=== PATIENT | female | born 1945 | race Caucasian/White ===

== ENCOUNTER 2016-10-07 17:09 | Inpatient (IN) | payer OTHER ==
[~2016-10-07] VITALS: Ht 165.1 cm; Wt 84.8 kg
[~2016-10-07 17:09] MED LIST: CALC0.258 PO; EPOE1VIA13 SUBCUT; ERGO500043 PO; FERR-57 PO; FOLI-43 PO; FURO40TA5 PO; HYDR-1115 PO; INSU100V; INSU100V26 SUBCUT; INSU100V9 SUBCUT; LEVO112T5 PO; LIP80 PO; NIFE90TA48 PO; PANT40TA4 PO; SODI325T PO; TAMO20TA4 PO; TOPXL100 PO
[2016-10-07 17:12] VITALS: BP 156/87; PULSE 79; RESP 16; TEMP 97.1; O2SAT 98
[2016-10-07] MEDS ORDERED: INSULIN PUMP SQ (18:23)
[2016-10-07 18:37] LABS: ANION GAP 6 (5-15); CALCIUM 9.2 mg/dL (8.4-11.0); CHLORIDE 105 mmol/L (98-107); CREATININE 3.26 mg/dL (0.55-1.30); GLUCOSE 105 mg/dL (70-99); POTASSIUM 4.9 mmol/L (3.5-5.1); SODIUM SERUM 141 mmol/L (136-145); UREA NITROGEN, BLOOD 53 mg/dL (8-21)
[2016-10-07 18:42] LABS: ALANINE AMINOTRANSFERASE 36 U/L (12-78); ALBUMIN 3.9 g/dL (3.4-4.8); ASPARTATE AMINOTRANSFERASE 28 U/L (10-37); TOTAL BILIRUBIN 0.2 mg/dL (0.0-1.0); TOTAL PROTEIN, SERUM 7.3 g/dL (6.4-8.3)
[2016-10-07 18:51] LABS: PROTHROMBIN TIME 10.4 SECS (9.5-12.5)
[2016-10-07 18:52] LABS: BASOPHILS % (AUTO) 0.6 % (0.0-2.0); EOSINOPHILS # (AUTO) 0.1 K/uL (0.0-0.4); EOSINOPHILS % (AUTO) 1.4 % (0.0-4.0); HEMATOCRIT 42.2 % (36-48); HEMOGLOBIN 13.5 g/dL (12.0-16.0); LYMPHOCYTES # (AUTO) 1.6 K/uL (1.0-5.5); MEAN CORPUSCULAR HEMOGLOBIN 27 pg (27-31); MEAN CORPUSCULAR HGB CONC 32 % (32-36); MEAN CORPUSCULAR VOLUME 83 fL (79.0-98.0); MONOCYTES # (AUTO) 1.2 K/uL (0.0-1.0); MONOCYTES % (AUTO) 14.1 % (1.7-9.3); NEUTROPHILS # (AUTO) 5.3 K/uL (1.8-7.7); NEUTROPHILS % (AUTO) 64.9 % (40.0-70.0); PLATELET COUNT (AUTO) 141 K/uL (130-430); RED BLOOD CELL COUNT(AUTO) 5.07 MIL/uL (4.2-6.2); RED CELL DISTRIBUTION WIDTH 16.4 % (9.0-15.0); WHITE BLOOD COUNT (AUTO) 8.2 K/uL (4.8-10.8)
[2016-10-07 19:14] VITALS: BP 180/87; PULSE 72; RESP 18; TEMP 96.7; O2SAT 95
[2016-10-07 19:30] VITALS: BP 153/67; PULSE 73; RESP 15; TEMP 98.6
[2016-10-07] MEDS ORDERED: MORPHINE 2 MG/ML INJ. SYRINGE IVP PRN (20:30)
[2016-10-07] MEDS ORDERED: MAGNESIUM SULFATE 50 ML IV PRN (20:30)
[2016-10-07] MEDS ORDERED: DOCUSATE SODIUM 100 MG CAPSULE PO PRN (20:30)
[2016-10-07] MEDS ORDERED: LORazepam 2 MG/ML VIAL IVP PRN (20:30)
[2016-10-07] MEDS ORDERED: ZOLPIDEM TARTRATE 5 MG TABLET PO PRN (20:30)
[2016-10-07] MEDS ORDERED: ONDANSETRON HCL 4 MG/2 ML VIAL IVP PRN (20:30)
[2016-10-07] MEDS ORDERED: POTASSIUM CHLORIDE 10 MEQ TAB.PRT.SR PO PRN (20:30)
[2016-10-07] MEDS ORDERED: HEPARIN SODIUM,PORCINE 3000 UNITS/0.6 ML BOLUS IVP PRN (20:30)
[2016-10-07] MEDS ORDERED: HEPARIN SODIUM,PORCINE 2000 UNITS/0.4 ML BOLUS IVP PRN (20:30)
[2016-10-07] MEDS ORDERED: ATORVASTATIN 20 MG TABLET PO SCH (21:00)
[2016-10-07] MEDS: hydrALAZINE HCL 25 MG TABLET PO SCH (21:00)
[2016-10-07] MEDS: INSULIN REGULAR, HUMAN 100 UNITS/ML, 10 ML VIAL (novoLIN R) SUBCUT PRN (22:23)
[2016-10-07] MEDS ORDERED: HEPARIN IVP ONE (22:30)
[2016-10-08 00:27] VITALS: BP 129/72; PULSE 72; RESP 17; TEMP 98.2; O2SAT 98
[2016-10-08] MEDS: HEPARIN 25,000 UNITS in 250 ML PREMIX IV PRN (02:04)
[2016-10-08] MEDS: INSULIN REGULAR, HUMAN 100 UNITS/ML, 10 ML VIAL (novoLIN R) SUBCUT PRN ×3 (02:07→12:45)
[2016-10-08] MEDS: ACETAMINOPHEN 325 MG TABLET PO PRN (02:38)
[2016-10-08 04:53] VITALS: BP 137/63; PULSE 68; RESP 17; TEMP 98.6; O2SAT 98
[2016-10-08] MEDS: LEVOTHYROXINE SODIUM 0.112 MG TABLET PO SCH (06:56)
[2016-10-08 07:42] LABS: BASOPHILS % (AUTO) 0.4 % (0.0-2.0); EOSINOPHILS % (AUTO) 0.2 % (0.0-4.0); HEMATOCRIT 35.4 % (36-48); HEMOGLOBIN 11.4 g/dL (12.0-16.0); LYMPHOCYTES # (AUTO) 1.3 K/uL (1.0-5.5); LYMPHOCYTES % (AUTO) 15.7 % (20.5-51.5); MEAN CORPUSCULAR HEMOGLOBIN 26 pg (27-31); MEAN CORPUSCULAR HGB CONC 32 % (32-36); MEAN CORPUSCULAR VOLUME 82 fL (79.0-98.0); MONOCYTES # (AUTO) 0.6 K/uL (0.0-1.0); MONOCYTES % (AUTO) 7.5 % (1.7-9.3); NEUTROPHILS # (AUTO) 6.3 K/uL (1.8-7.7); NEUTROPHILS % (AUTO) 76.2 % (40.0-70.0); PLATELET COUNT (AUTO) 139 K/uL (130-430); RED BLOOD CELL COUNT(AUTO) 4.33 MIL/uL (4.2-6.2); RED CELL DISTRIBUTION WIDTH 16.2 % (9.0-15.0); WHITE BLOOD COUNT (AUTO) 8.2 K/uL (4.8-10.8)
[2016-10-08 08:16] VITALS: BP 158/60; PULSE 70; RESP 17; TEMP 97.3; O2SAT 94
[2016-10-08 08:21] LABS: ANION GAP 10 (5-15); CALCIUM 8.8 mg/dL (8.4-11.0); CHLORIDE 101 mmol/L (98-107); CREATININE 3.44 mg/dL (0.55-1.30); GLUCOSE 398 mg/dL (70-99); POTASSIUM 4.8 mmol/L (3.5-5.1); SODIUM SERUM 134 mmol/L (136-145); UREA NITROGEN, BLOOD 59 mg/dL (8-21)
[2016-10-08] MEDS: FOLIC ACID 1 MG TABLET PO SCH (08:34)
[2016-10-08] MEDS: PANTOPRAZOLE SODIUM 40 MG TAB PO SCH (08:34)
[2016-10-08] MEDS: FUROSEMIDE 40 MG TABLET PO SCH (08:35)
[2016-10-08] MEDS: NIFEDIPINE 90 MG TABLET.SA (PROCARDIA XL 90 MG) PO SCH (08:36)
[2016-10-08] MEDS: hydrALAZINE HCL 25 MG TABLET PO SCH ×3 (08:37→21:43)
[2016-10-08] MEDS: METOPROLOL SUCCINATE 50 MG TAB.SR.24H (TOPROL XL) PO SCH (08:38)
[2016-10-08] MEDS ORDERED: cloNIDine HCL 0.1 MG TABLET PO PRN (11:30)
[2016-10-08 12:00] VITALS: BP 166/74; PULSE 68; RESP 16; TEMP 99.5; O2SAT 94
[2016-10-08 16:00] VITALS: BP 149/56; PULSE 65; RESP 18; TEMP 97.3; O2SAT 93
[2016-10-08] MEDS ORDERED: *HEPARIN PER PHARMACY XX PRN (18:45)
[2016-10-08 19:50] VITALS: BP 142/61; PULSE 68; RESP 20; TEMP 99.6; O2SAT 93
[2016-10-08] MEDS ORDERED: COMMUNICATION ORDER XX ONE (21:00)
[2016-10-08] MEDS: ATORVASTATIN 20 MG TABLET PO SCH (21:39)
[2016-10-09] VITALS (7 sets, daily range): BP systolic 109–161; BP diastolic 55–82; PULSE 59–101; RESP 16–20; TEMP 97.2–98.5; O2SAT 95–96
[2016-10-09] MEDS: HEPARIN 25,000 UNITS in 250 ML PREMIX IV PRN ×2 (01:48→02:52)
[2016-10-09 02:26] LABS: BASOPHILS # (AUTO) 0.1 K/uL (0.0-0.2); BASOPHILS % (AUTO) 0.9 % (0.0-2.0); EOSINOPHILS # (AUTO) 0.1 K/uL (0.0-0.4); EOSINOPHILS % (AUTO) 1.2 % (0.0-4.0); HEMATOCRIT 38.1 % (36-48); HEMOGLOBIN 12.4 g/dL (12.0-16.0); LYMPHOCYTES # (AUTO) 1.8 K/uL (1.0-5.5); LYMPHOCYTES % (AUTO) 31.5 % (20.5-51.5); MEAN CORPUSCULAR HEMOGLOBIN 26 pg (27-31); MEAN CORPUSCULAR HGB CONC 33 % (32-36); MEAN CORPUSCULAR VOLUME 81 fL (79.0-98.0); MONOCYTES # (AUTO) 0.9 K/uL (0.0-1.0); MONOCYTES % (AUTO) 16.2 % (1.7-9.3); NEUTROPHILS # (AUTO) 2.7 K/uL (1.8-7.7); NEUTROPHILS % (AUTO) 50.2 % (40.0-70.0); PLATELET COUNT (AUTO) 158 K/uL (130-430); RED BLOOD CELL COUNT(AUTO) 4.69 MIL/uL (4.2-6.2); RED CELL DISTRIBUTION WIDTH 16.3 % (9.0-15.0); WHITE BLOOD COUNT (AUTO) 5.6 K/uL (4.8-10.8)
[2016-10-09 02:34] LABS: ALANINE AMINOTRANSFERASE 25 U/L (12-78); ALBUMIN 3.4 g/dL (3.4-4.8); ANION GAP 8 (5-15); ASPARTATE AMINOTRANSFERASE 21 U/L (10-37); CHLORIDE 102 mmol/L (98-107); CREATININE 3.31 mg/dL (0.55-1.30); GLUCOSE 95 mg/dL (70-99); PHOSPHORUS 3.4 mg/dL (2.7-4.5); POTASSIUM 4.2 mmol/L (3.5-5.1); SODIUM SERUM 136 mmol/L (136-145); TOTAL BILIRUBIN 0.3 mg/dL (0.0-1.0); TOTAL PROTEIN, SERUM 6.9 g/dL (6.4-8.3); UREA NITROGEN, BLOOD 64 mg/dL (8-21)
[2016-10-09] MEDS: hydrALAZINE HCL 25 MG TABLET PO SCH ×3 (06:00→21:42)
[2016-10-09] MEDS: LEVOTHYROXINE SODIUM 0.112 MG TABLET PO SCH (06:06)
[2016-10-09] MEDS: FUROSEMIDE 40 MG TABLET PO SCH (08:34)
[2016-10-09] MEDS: PANTOPRAZOLE SODIUM 40 MG TAB PO SCH (08:34)
[2016-10-09] MEDS: FOLIC ACID 1 MG TABLET PO SCH (08:34)
[2016-10-09] MEDS: METOPROLOL SUCCINATE 50 MG TAB.SR.24H (TOPROL XL) PO SCH (08:34)
[2016-10-09] MEDS: NIFEDIPINE 90 MG TABLET.SA (PROCARDIA XL 90 MG) PO SCH (08:34)
[2016-10-09] MEDS ORDERED: COMMUNICATION ORDER XX ONE (09:45)
[2016-10-09] MEDS ORDERED: INSULIN PUMP SUBCUT SCH (10:15)
[2016-10-09] MEDS: PRAMOXINE HCL/CALAMINE 180 ML LOTION TP SCH ×3 (10:44→21:42)
[2016-10-09] MEDS: ACYCLOVIR 400 MG TABLET PO SCH ×4 (10:44→21:54)
[2016-10-09] MEDS: ACETAMINOPHEN 325 MG TABLET PO PRN (15:38)
[2016-10-09] MEDS: ATORVASTATIN 20 MG TABLET PO SCH (21:42)
[2016-10-09] MEDS: TAMOXIFEN 20 MG PO SCH (21:44)
[2016-10-10 04:00] VITALS: BP 138/74; PULSE 83; RESP 16; TEMP 97.1; O2SAT 96
[2016-10-10] MEDS: hydrALAZINE HCL 25 MG TABLET PO SCH ×3 (06:00→21:08)
[2016-10-10] MEDS: ACYCLOVIR 400 MG TABLET PO SCH ×5 (06:00→21:08)
[2016-10-10] MEDS: LEVOTHYROXINE SODIUM 0.112 MG TABLET PO SCH (06:19)
[2016-10-10 07:35] LABS: BASOPHILS % (AUTO) 0.5 % (0.0-2.0); EOSINOPHILS # (AUTO) 0.1 K/uL (0.0-0.4); EOSINOPHILS % (AUTO) 1.9 % (0.0-4.0); HEMATOCRIT 37.7 % (36-48); LYMPHOCYTES # (AUTO) 1.6 K/uL (1.0-5.5); LYMPHOCYTES % (AUTO) 27.5 % (20.5-51.5); MEAN CORPUSCULAR HEMOGLOBIN 26 pg (27-31); MEAN CORPUSCULAR HGB CONC 32 % (32-36); MEAN CORPUSCULAR VOLUME 82 fL (79.0-98.0); MONOCYTES # (AUTO) 0.7 K/uL (0.0-1.0); MONOCYTES % (AUTO) 12.9 % (1.7-9.3); NEUTROPHILS # (AUTO) 3.4 K/uL (1.8-7.7); NEUTROPHILS % (AUTO) 57.2 % (40.0-70.0); PLATELET COUNT (AUTO) 154 K/uL (130-430); RED BLOOD CELL COUNT(AUTO) 4.59 MIL/uL (4.2-6.2); RED CELL DISTRIBUTION WIDTH 16.4 % (9.0-15.0); WHITE BLOOD COUNT (AUTO) 5.8 K/uL (4.8-10.8)
[2016-10-10 07:52] VITALS: BP 120/50; PULSE 59; RESP 18; TEMP 98.7; O2SAT 96
[2016-10-10 08:03] LABS: ANION GAP 11 (5-15); CALCIUM 8.3 mg/dL (8.4-11.0); CHLORIDE 103 mmol/L (98-107); CREATININE 3.98 mg/dL (0.55-1.30); GLUCOSE 195 mg/dL (70-99); POTASSIUM 4.2 mmol/L (3.5-5.1); SODIUM SERUM 138 mmol/L (136-145); UREA NITROGEN, BLOOD 66 mg/dL (8-21)
[2016-10-10] MEDS: FUROSEMIDE 40 MG TABLET PO SCH (09:00)
[2016-10-10] MEDS: PANTOPRAZOLE SODIUM 40 MG TAB PO SCH (09:00)
[2016-10-10] MEDS: METOPROLOL SUCCINATE 50 MG TAB.SR.24H (TOPROL XL) PO SCH (09:00)
[2016-10-10] MEDS: PRAMOXINE HCL/CALAMINE 180 ML LOTION TP SCH ×3 (09:00→21:00)
[2016-10-10] MEDS: FOLIC ACID 1 MG TABLET PO SCH (09:00)
[2016-10-10] MEDS: NIFEDIPINE 90 MG TABLET.SA (PROCARDIA XL 90 MG) PO SCH (09:00)
[2016-10-10] MEDS ORDERED: HYDROcodone/ACETAMIN 5-325 MG TAB (NORCO/ VICODIN) PO PRN ×2 (09:15)
[2016-10-10] MEDS ORDERED: ONDANSETRON HCL 4 MG/2 ML VIAL IVP ONE (09:15)
[2016-10-10] MEDS ORDERED: POLYMYXIN 500,000/BACIT.10,000 UNITS in NS IRR 1 L IR ONE (11:59)
[2016-10-10 12:02] VITALS: BP 160/68; PULSE 64; RESP 18; TEMP 97.1; O2SAT 95
[2016-10-10] MEDS ORDERED: NACL 0.9% 1,000 ML IV SCH (12:22)
[2016-10-10] MEDS ORDERED: ONDANSETRON HCL 4 MG/2 ML VIAL IVP PRN (12:30)
[2016-10-10] MEDS ORDERED: HYDROmorphone 1 MG INJ. 1 MG/ML AMPUL ONE (13:30)
[2016-10-10] MEDS ORDERED: NS 50 ML BAG IV ONE (14:00)
[2016-10-10] MEDS ORDERED: fentaNYL CITRATE/PF 100 MCG/2 ML AMP ONE (14:00)
[2016-10-10] MEDS ORDERED: NS 100 ML BAG IV ONE (14:00)
[2016-10-10] MEDS ORDERED: METOPROLOL TARTRATE 5 MG/5 ML VIAL ONE (14:00)
[2016-10-10] MEDS ORDERED: NS IRRIG SOLN 1000 ML IR ONE (14:00)
[2016-10-10] MEDS ORDERED: HEPARIN SODIUM,PORCINE 5000 UNITS/ML VIAL ONE (14:00)
[2016-10-10] MEDS ORDERED: LIDOCAINE/EPI 1% 1:100000 20 ML VIAL INJ ONE (14:00)
[2016-10-10] MEDS ORDERED: MIDAZOLAM HCL 5 MG/5 ML VIAL ONE (14:00)
[2016-10-10] MEDS ORDERED: CEFAZOLIN 2 GM IVPB PREMIX 50 ML IV ONE (14:00)
[2016-10-10] MEDS ORDERED: NS 1000 ML BAG IV ONE (14:00)
[2016-10-10] MEDS ORDERED: PROPOFOL 200MG/ 20ML VIAL (DIPRIVAN) IV ONE (14:00)
[2016-10-10 14:10] VITALS: BP 140/58; PULSE 67; RESP 16; TEMP 97.2; O2SAT 95
[2016-10-10] MEDS ORDERED: HEPARIN IV FLUSH 300 UNITS/3ML SYR INJ ONE (15:00)
[2016-10-10] MEDS ORDERED: HEPARIN SODIUM, PORCINE 10,000 UNITS/ 10 ML VIAL MC ONE (16:00)
[2016-10-10] MEDS: INSULIN ASPART 100 UNITS/ML, 10 ML VIAL (NovoLOG) SUBCUT PRN ×2 (17:49→17:54)
[2016-10-10 20:29] VITALS: BP 134/49; PULSE 78; RESP 18; TEMP 97; O2SAT 98
[2016-10-10 20:30] VITALS: BP 134/49; PULSE 78; RESP 18; TEMP 97; O2SAT 98
[2016-10-10] MEDS: ATORVASTATIN 20 MG TABLET PO SCH (21:00)
[2016-10-10] MEDS: TAMOXIFEN 20 MG PO SCH (21:02)
[2016-10-11 00:48] VITALS: BP 129/56; PULSE 69; RESP 18; TEMP 97.3; O2SAT 97
[2016-10-11 04:00] VITALS: BP 135/57; PULSE 69; RESP 18; TEMP 99.3; O2SAT 93
[2016-10-11] MEDS: ACYCLOVIR 400 MG TABLET PO SCH ×3 (05:57→14:00)
[2016-10-11] MEDS: LEVOTHYROXINE SODIUM 0.112 MG TABLET PO SCH (05:58)
[2016-10-11] MEDS: hydrALAZINE HCL 25 MG TABLET PO SCH ×2 (05:58→14:00)
[2016-10-11 08:01] LABS: BASOPHILS % (AUTO) 0.4 % (0.0-2.0); EOSINOPHILS % (AUTO) 0.3 % (0.0-4.0); HEMATOCRIT 34.9 % (36-48); HEMOGLOBIN 11.6 g/dL (12.0-16.0); LYMPHOCYTES # (AUTO) 1.7 K/uL (1.0-5.5); LYMPHOCYTES % (AUTO) 20.8 % (20.5-51.5); MEAN CORPUSCULAR HEMOGLOBIN 27 pg (27-31); MEAN CORPUSCULAR HGB CONC 33 % (32-36); MEAN CORPUSCULAR VOLUME 80 fL (79.0-98.0); MONOCYTES # (AUTO) 1.1 K/uL (0.0-1.0); MONOCYTES % (AUTO) 12.8 % (1.7-9.3); NEUTROPHILS # (AUTO) 5.4 K/uL (1.8-7.7); NEUTROPHILS % (AUTO) 65.7 % (40.0-70.0); PLATELET COUNT (AUTO) 124 K/uL (130-430); RED BLOOD CELL COUNT(AUTO) 4.38 MIL/uL (4.2-6.2)
[2016-10-11 08:05] LABS: WHITE BLOOD COUNT (AUTO) 8.2 K/uL (4.8-10.8)
[2016-10-11 08:19] LABS: ANION GAP 14 (5-15); CALCIUM 8.2 mg/dL (8.4-11.0); CHLORIDE 98 mmol/L (98-107); CREATININE 2.95 mg/dL (0.55-1.30); PHOSPHORUS 4.1 mg/dL (2.7-4.5); POTASSIUM 4.3 mmol/L (3.5-5.1); SODIUM SERUM 136 mmol/L (136-145); UREA NITROGEN, BLOOD 42 mg/dL (8-21)
[2016-10-11 08:32] LABS: GLUCOSE 404 mg/dL (70-99)
[2016-10-11 08:35] VITALS: BP 143/85; PULSE 83; RESP 16; TEMP 98.5; O2SAT 96
[2016-10-11] MEDS ORDERED: [UNRECOGNIZED DRUG - CODE] TP (08:41)
[2016-10-11] MEDS ORDERED: ACYC400T PO (08:41)
[2016-10-11] MEDS: PRAMOXINE HCL/CALAMINE 180 ML LOTION TP SCH ×2 (09:00→15:00)
[2016-10-11] MEDS: PANTOPRAZOLE SODIUM 40 MG TAB PO SCH (09:00)
[2016-10-11] MEDS: METOPROLOL SUCCINATE 50 MG TAB.SR.24H (TOPROL XL) PO SCH (09:00)
[2016-10-11] MEDS: FUROSEMIDE 40 MG TABLET PO SCH (09:00)
[2016-10-11] MEDS: FOLIC ACID 1 MG TABLET PO SCH (09:00)
[2016-10-11] MEDS: NIFEDIPINE 90 MG TABLET.SA (PROCARDIA XL 90 MG) PO SCH (09:00)
[2016-10-11 10:09] LABS: HEPATITIS A AB, IgM Negative (Negative); HEPATITIS B CORE AB, IgM Negative (Negative); HEPATITIS B SURFACE AG Negative (Negative)
[2016-10-11 10:35] VITALS: BP 143/85; PULSE 83; RESP 16; TEMP 98.5; O2SAT 96
[2016-10-11 11:36] VITALS: BP 146/82; PULSE 90; RESP 17; TEMP 97.7; O2SAT 95
[2016-10-11] MEDS: INSULIN ASPART 100 UNITS/ML, 10 ML VIAL (NovoLOG) SUBCUT PRN (12:02)
== END 2016-10-11 16:10 | disposition home or self-care (01) | DRG 173 ==
LOC: SED 17:09 → SMU 18:45
PROVIDERS: ADMIT General Practice; ATTEND General Practice
PROC: 5A1D00Z (ICD-10-PCS; 2016-10-10)
PROC: 06H033Z Insertion of Infusion Device into Inferior Vena Cava, Percutaneous Approach (ICD-10-PCS; 2016-10-10)
PROC: B549ZZA Ultrasonography of Inferior Vena Cava, Guidance (ICD-10-PCS; 2016-10-10)
PROC: B5191ZA Fluoroscopy of Inferior Vena Cava using Low Osmolar Contrast, Guidance (ICD-10-PCS; 2016-10-10)
PROC: 05WY0JZ Revision of Synthetic Substitute in Upper Vein, Open Approach (ICD-10-PCS; principal; 2016-10-10 13:00)
DX: T82.868A Thrombosis due to vascular prosthetic devices, implants and grafts, initial encounter (principal); I82.402 Acute embolism and thrombosis of unspecified deep veins of left lower extremity; I12.0 Hypertensive chronic kidney disease with stage 5 chronic kidney disease or end stage renal disease; N18.6 End stage renal disease; I82.622 Acute embolism and thrombosis of deep veins of left upper extremity; E11.40 Type 2 diabetes mellitus with diabetic neuropathy, unspecified; E11.21 Type 2 diabetes mellitus with diabetic nephropathy; E03.9 Hypothyroidism, unspecified; E11.22 Type 2 diabetes mellitus with diabetic chronic kidney disease; E11.319 Type 2 diabetes mellitus with unspecified diabetic retinopathy without macular edema; E11.65 Type 2 diabetes mellitus with hyperglycemia; E78.5 Hyperlipidemia, unspecified; Y83.2 Surgical operation with anastomosis, bypass or graft as the cause of abnormal reaction of the patient, or of later complication, without mention of misadventure at the time of the procedure; K21.9 Gastro-esophageal reflux disease without esophagitis; Z79.4 Long term (current) use of insulin; Z99.2 Dependence on renal dialysis; D63.8 Anemia in other chronic diseases classified elsewhere; E66.9 Obesity, unspecified; Z85.3 Personal history of malignant neoplasm of breast; B02.9 Zoster without complications; Z91.048 Other nonmedicinal substance allergy status; Z90.49 Acquired absence of other specified parts of digestive tract; Z98.42 Cataract extraction status, left eye; Z98.41 Cataract extraction status, right eye; Z90.10 Acquired absence of unspecified breast and nipple; Z68.31 Body mass index [BMI] 31.0-31.9, adult; Z79.899 Other long term (current) drug therapy; Y92.89 Other specified places as the place of occurrence of the external cause; Z53.8 Procedure and treatment not carried out for other reasons
CPT/HCPCS: 36415; 71010; 76000; 80048; 80053; 80074; 82947-TC; 82962; 83735-TC; 84100-TC; 85025; 85610-TC; 85730-TC; 87081; 90935; 93005; 93971; 99285; C1750; C1751; G0365; J0690; J1170; J1644; J1815; J2250; J2704; J3010; J3490; J7030

== ENCOUNTER 2016-11-28 08:58 | Inpatient (IN) | payer OTHER ==
[~2016-11-28] VITALS: Ht 165.1 cm; Wt 84.9 kg
[~2016-11-28 08:58] MED LIST changes: +ACYC400T PO; +INSULIN PUMP SQ; +[UNRECOGNIZED DRUG - CODE] TP
[2016-11-28 09:00] VITALS: BP 193/71; PULSE 81; RESP 17; TEMP 97.3; O2SAT 95
--- NOTE | 2016-11-28 09:00 | NUR ---
BROUGHT BACK TO BED #2 AND TRIAGED. REPORT GIVEN TO ROBER
--- NOTE | 2016-11-28 09:09 | NUR ---
DR PITTMAN AT BEDSIDE FOR EVALUATION
--- NOTE | 2016-11-28 09:10 | NUR ---
Patient in stable condition, alert and oriented x4. Caregiver present translation setswana to turkmen. States that she went to restroom yesterday morning and woke up on floor. Fall unwitnesssed. +lapse in conciousness. Denies hitting injury. Denies neck pain. Denies any dizziness now or at time of event. States has right shoulder and mid back pain. Patient able to move arms with ease, bilateral radial pulses present and strong, sensation present, cap refill less than three secs. Bruising noted to bilateral lower extremities, no bleeding noted. No deformities noted. No other complaints/injuries per patient/caregiver or noted. Addendum: 11/28/16 at 1107 by LEVON Denies head injury bruising and scabs to knees/lower extremities
--- NOTE | 2016-11-28 09:12 | NUR ---
Dialysis port with pig tails to right chest, covered with dressing. Non functioning shunt to left arm. Patient has own insuling pump
[2016-11-28] MEDS ORDERED: ACETAMINOPHEN 325 MG TABLET PO ONE (09:15)
[2016-11-28] MEDS ORDERED: ONDANSETRON HCL 4 MG/2 ML VIAL IVP ONE (09:15)
--- NOTE | 2016-11-28 09:15 | NUR ---
Patient taken to CT.
[2016-11-28 09:44] LABS: BASOPHILS % (AUTO) 0.3 % (0.0-2.0); EOSINOPHILS # (AUTO) 0.1 K/uL (0.0-0.4); EOSINOPHILS % (AUTO) 1.9 % (0.0-4.0); HEMATOCRIT 38.2 % (36-48); HEMOGLOBIN 12.5 g/dL (12.0-16.0); LYMPHOCYTES # (AUTO) 1.1 K/uL (1.0-5.5); MEAN CORPUSCULAR HEMOGLOBIN 28 pg (27-31); MEAN CORPUSCULAR HGB CONC 33 % (32-36); MEAN CORPUSCULAR VOLUME 85 fL (79.0-98.0); MONOCYTES # (AUTO) 0.5 K/uL (0.0-1.0); MONOCYTES % (AUTO) 6.9 % (1.7-9.3); NEUTROPHILS # (AUTO) 6.2 K/uL (1.8-7.7); NEUTROPHILS % (AUTO) 76.9 % (40.0-70.0); PLATELET COUNT (AUTO) 179 K/uL (130-430); RED CELL DISTRIBUTION WIDTH 18.1 % (9.0-15.0); WHITE BLOOD COUNT (AUTO) 7.9 K/uL (4.8-10.8)
[2016-11-28 09:53] LABS: PROTHROMBIN TIME 10.8 SECS (9.5-12.5)
[2016-11-28 09:56] LABS: ALANINE AMINOTRANSFERASE 22 U/L (12-78); ALBUMIN 3.5 g/dL (3.4-4.8); ANION GAP 6 (5-15); ASPARTATE AMINOTRANSFERASE 18 U/L (10-37); CALCIUM 8.8 mg/dL (8.4-11.0); CHLORIDE 106 mmol/L (98-107); CREATININE 3.18 mg/dL (0.55-1.30); GLUCOSE 203 mg/dL (70-99); POTASSIUM 4.2 mmol/L (3.5-5.1); SODIUM SERUM 140 mmol/L (136-145); TOTAL BILIRUBIN 0.4 mg/dL (0.0-1.0); UREA NITROGEN, BLOOD 48 mg/dL (8-21)
--- NOTE | 2016-11-28 10:01 | NUR ---
Patient still in CT, waiting for return.
--- NOTE | 2016-11-28 10:20 | NUR ---
Return from CT, stable condition.
[2016-11-28] MEDS ORDERED: ONDANSETRON 4 MG ODT TAB PO ONE (11:00)
[2016-11-28] MEDS ORDERED: DEXTROSE 50% JECT 50 ML DISP.SYRIN IVP PRN (11:00)
[2016-11-28] MEDS ORDERED: INSULIN REGULAR, HUMAN 100 UNITS/ML, 10 ML VIAL (novoLIN R) SUBCUT PRN (11:00)
[2016-11-28] MEDS ORDERED: ONDANSETRON 4 MG ODT TAB ONE (11:02)
[2016-11-28 11:03] LABS: BILIRUBIN,URINE NEGATIVE (NEGATIVE); CLARITY/URINE CLEAR (CLEAR); COLOR,URINE YELLOW (YELLOW); GLUCOSE,URINE TRACE (NEGATIVE); KETONES,URINE NEGATIVE (NEGATIVE); LEUKOCYTE ESTERASE ,URINE TRACE (NEGATIVE); NITRITE, URINE POSITIVE (NEGATIVE); PH,URINE 6.5 (5.0-8.0); PROTEIN URINE 1+ (NEGATIVE); UROBILINOGEN,URINE 0.2 (0.2-1.0)
[2016-11-28 11:09] LABS: BLOOD, URINE TRACE (NEGATIVE)
[2016-11-28 11:20] LABS: BACTERIA,URINE MODERATE /HPF (None Seen); MUCUS,URINE 1+ /LPF (None Seen); RBC,URINE 0-3 /HPF (0-3)
[2016-11-28] MEDS ORDERED: cefTRIAXone 1 GM in LIDOCAINE 1%, 20 ML MDV 2.1 ML IM ONE (11:45)
--- NOTE | 2016-11-28 12:30 | NUR ---
Patient resting in bed, no distress noted.
--- NOTE | 2016-11-28 12:49 | NUR ---
Spoke with Bernadette on floor-no nurses available at this time
[2016-11-28 13:00] VITALS: BP 206/118; PULSE 66; RESP 18; TEMP 98.6; O2SAT 99
--- NOTE | 2016-11-28 13:00 | NUR ---
Patient will be admitted to Tele unit.Summary report printed. Report given to Jennifer FREEMAN.
--- NOTE | 2016-11-28 13:05 | NUR ---
Right should sling with immobilizer placed per MD verbal order, patient tolerated well. Addendum: 11/28/16 at 1305 by LEVON shoulder
--- NOTE | 2016-11-28 13:15 | NUR ---
ADMIT NOTE Received pt from ER to the floor with a diagnosis of syncope. Admission process initiated. patient oriented to pain management, safety and call light-teach back done.
[2016-11-28] MEDS ORDERED: FURO80TA3 PO (13:30)
[2016-11-28] MEDS ORDERED: METO-308 (13:30)
[2016-11-28] MEDS ORDERED: INSU100V (13:30)
[2016-11-28] MEDS ORDERED: PANT40TA4 PO (13:30)
[2016-11-28] MEDS ORDERED: ATOR40TA68 PO (13:30)
[2016-11-28] MEDS ORDERED: TAMO20TA4 PO (13:30)
[2016-11-28] MEDS ORDERED: HYDR-1115 PO (13:30)
[2016-11-28] MEDS ORDERED: FOLI-43 PO (13:30)
[2016-11-28] MEDS ORDERED: NIFE20CA PO (13:30)
[2016-11-28] MEDS ORDERED: LEVO125T8 PO (13:30)
--- NOTE | 2016-11-28 13:31 | NUR ---
Medication reconciliation completed with information provided by patient. Any prior medication reconciliation on file was reviewed and corrected.
[2016-11-28 13:52] VITALS: BP 206/118; PULSE 66; RESP 18; TEMP 98.6; O2SAT 99
[2016-11-28] MEDS: hydrALAZINE HCL 25 MG TABLET PO SCH ×2 (14:30→21:01)
--- NOTE | 2016-11-28 14:36 | NUR ---
Consult was called Re: Diabetes type 1 spoke with Robyn from Dr Parks office . Addendum: 11/28/16 at 1613 by Lyudmila Ma RN ROBYN CALLED BACK TO INFORM THAT DR. PARKS DOES NOT SEE PATIENT WITH HER INSURANCE. DR. ELLIS MADE AWARE. NO NEW ORDERS.
--- NOTE | 2016-11-28 14:39 | NUR ---
Consult was called Re: ESRD sppoke with Michaela from Dr Yousif office .
--- NOTE | 2016-11-28 16:00 | NUR ---
NOTE: PATIENT IS RESTING COMFORTABLY IN BED. NO S/S OF DISTRESS OR SOB. PATIENT IS ALERT AND ORIENTED, ABLE TO EXPRESS NEEDS, AND ASK FOR ASSISTANCE. PATIENT HAS NO IV ACCESS. PATIENT REFUSED TO GET AN IV. STATES THAT SHE DOES NOT HAVE GOOD VEINS AND DOES NOT WANT TO BE POKED. CALL LIGHT IN REACH, BED IN LOWEST POSITION, AND WILL CONTINUE TO MONITOR.
[2016-11-28 16:25] VITALS: BP 173/77; PULSE 67; RESP 18; TEMP 98.2; O2SAT 98
--- NOTE | 2016-11-28 18:24 | NUR ---
CLOSING NOTE: PATIENT IS IN DIALYSIS. CALL LIGHT IN REACH, BED IN LOWEST POSITION, AND WILL GIVE REPORT TO NIGHT NURSE.
[2016-11-28 20:00] VITALS: BP 112/65; PULSE 74; RESP 20; TEMP 98.1; O2SAT 97
--- NOTE | 2016-11-28 20:00 | NUR ---
DIALYSIS ON-GOING. AAOX4. ROMANSH SPEAKING. IN NO APPARENT DISTRESS. VSS. ON ROOM AIR. POX 97%. BREATH SOUNDS CLEAR. BOWEL SOUNDS (+). PULSES PALPABLE. SKIN W/D. COLOR SATISFACTORY. HOB UP TO COMFORT. SIDE RAILS UP HUGH LIGHTS WITHIN REACH. INSULIN PUMP ACTIVE. SR.
[2016-11-28] MEDS ORDERED: HEPARIN SODIUM,PORCINE 5000 UNITS/ML VIAL ONE (20:26)
--- NOTE | 2016-11-28 20:45 | NUR ---
PT C/O NAUSEA AND DISCOMFORT/ CRAMPS IN RIGHT CALF. DIALYSIS NURSE CUT REMAINING TIME LEFT ON THE HEMODIALYSIS. TOTAL HD 2 1/2 HRS. 2000CC NET OUT. RIGHT SUBCLAVIAN PERMA-CATH DRSG CHANGED BY HD NURSE WEBBER. HEPARIN 5000 UNITS X 2 USED BY HEMODIALYSIS NURSE TO FLUSH PERMA-CATH PORTS. ACCU-CHEK 149, NO INSULIN GIVEN FROM THE INSULIN PUMP.
[2016-11-28] MEDS: ATORVASTATIN 20 MG TABLET PO SCH (21:00)
--- NOTE | 2016-11-28 22:00 | NUR ---
TRANSFERRED TO ROOM 116-A VIA BED. HS CARE. PARTIAL LINEN CHANGE.
[2016-11-29] VITALS (7 sets, daily range): BP systolic 145–178; BP diastolic 62–92; PULSE 63–70; RESP 18–19; TEMP 96.4–98.3; O2SAT 94–98
--- NOTE | 2016-11-29 | NUR ---
SOUNDLY ASLEEP. VSS.
--- NOTE | 2016-11-29 04:00 | NUR ---
SLEEPING SOUNDLY. TURNS SELF WELL. LOOKS COMFORTABLE. 0 DISTRESS.
--- NOTE | 2016-11-29 06:00 | NUR ---
SLEPT WELL . RESTFUL AND UNEVENTFUL NOC.
[2016-11-29] MEDS: LEVOTHYROXINE SODIUM 0.112 MG TABLET PO SCH (06:41)
--- NOTE | 2016-11-29 06:52 | NUR ---
ACCU-CHEK 219. PT WITH INSULIN PUMP.
--- NOTE | 2016-11-29 07:41 | NUR ---
AM Rounds: Received pt sitting semi-fowlers in bed. No acute signs of distress noted at this time. A&Ox4, Frisian speaking only. Frisian speaking RN at bedside for translation. Pt denies pain. Pt eating breakfast at this time without distress noted. Call light in reach. Continue to monitor pt closely.
[2016-11-29] MEDS: METOPROLOL SUCCINATE 50 MG TAB.SR.24H (TOPROL XL) PO SCH (08:39)
[2016-11-29] MEDS: NIFEDIPINE 90 MG TABLET.SA (PROCARDIA XL 90 MG) PO SCH (08:39)
[2016-11-29] MEDS: hydrALAZINE HCL 25 MG TABLET PO SCH ×3 (08:39→20:31)
[2016-11-29] MEDS: FOLIC ACID 1 MG TABLET PO SCH (08:39)
[2016-11-29] MEDS: FUROSEMIDE 40 MG TABLET PO SCH (08:40)
[2016-11-29] MEDS: PANTOPRAZOLE SODIUM 40 MG TAB PO SCH (08:40)
--- NOTE | 2016-11-29 08:40 | NUR ---
RN Rounds: AM meds given per MD order. Pt tolerates well at this time. Dr. Irizarry made aware that pt c/o nausea and pain. Call light in reach. Continue to monitor.
--- NOTE | 2016-11-29 08:58 | NUR ---
Nutrition Update Kyle Scale 18 noted. Pt admitted for syncope. Diet: renal standard and CCHO (2 active, separate diet orders) BMI: 31.1 kg/m2 RD to follow per nutrition care standards.
--- NOTE | 2016-11-29 11:16 | NUR ---
Consult Called: for Dr. Leo, regarding syncope, ordered by Dr. Irizarry, spoke with
--- NOTE | 2016-11-29 11:34 | NUR ---
Rounds/Dr. Irizarry Pt sitting up in bed. No acute signs of distress noted at this time. Dr. Irizarry made aware that patient has pain and nausea. Dr. Irizarry states "Ok I will enter the order". Dr. Irizarry also made aware that patient has concerns and questions regarding results of tests.
--- NOTE | 2016-11-29 12:10 | NUR ---
1200 v/s pt bp is 165/78 RN Briana was notified and aware.
--- NOTE | 2016-11-29 13:10 | NUR ---
Rounds: Pt laying flat in bed and sleeping. No acute signs of distress noted at this time. Yong cath intact to RUE with no redness or swelling noted to site. Call light in reach. Continue to monitor pt closely.
--- NOTE | 2016-11-29 15:15 | NUR ---
Rounds: Pt sleeping in bed, breathing even and unlabored on room air. Call light in reach. Continue to monitor pt closely.
--- NOTE | 2016-11-29 17:33 | NUR ---
Rounds: Pt sitting up at bedside. Blood sugar checked and patient tolerates well. Pt denies pain at this time. Daughter at bedside. Call light in reach. No other needs noted at this time. Ynog cath in place to right chest. Continue to monitor.
--- NOTE | 2016-11-29 18:54 | NUR ---
Closing Note: Pt sitting up in bed speaking with Dr. Leo. No acute signs of distress noted. Call light in reach. Fall precautions in place. Yong cath in place to right chest. No other needs noted at this time. Endorse plan of care to NOC RN.
--- NOTE | 2016-11-29 19:30 | NUR ---
PM ASSESSMENT PT. A/OX4, PERUVIAN SPEAKING, VITAL SIGNS STABLE, NO DISTRESS NOTED, UPDATED WITH PLAN OF CARE, DR. GIPSON AT BEDSIDE. NOTED WITH R. CHEST RAFA CATH. ENCOURAGED PT. TO USE CALL LIGHT FOR ASSISTANCE, WILL CONTINUE TO MONITOR.
[2016-11-29] MEDS ORDERED: ACETAMINOPHEN 325 MG TABLET PO PRN (20:15)
--- NOTE | 2016-11-29 20:15 | NUR ---
DR. ELLIS SPOKE WITH DR. ELLIS, MADE AWARE PT. IS C/O PAIN TO R. SHOULDER AND ARM AND PT. IS ASKING FOR TYLENOL, RECEIVED ORDER FOR TYLENOL 650 MG PO Q4P MILD PAIN, ORDER NOTED AND TO BE CARRIED OUT.
[2016-11-29] MEDS: ATORVASTATIN 20 MG TABLET PO SCH (20:31)
--- NOTE | 2016-11-29 21:30 | NUR ---
ACCUCHECK BLOOD LHZWR=[id number], NO COVERAGE GIVEN, PT. WILL USE HER OWN INSULIN PUMP.
[2016-11-30] VITALS (7 sets, daily range): BP systolic 120–167; BP diastolic 56–98; PULSE 63–79; RESP 16–20; TEMP 96.7–98.7; O2SAT 92–96
--- NOTE | 2016-11-30 | NUR ---
DR. ELLIS SPOKE WITH DR. ELLIS, MADE AWARE PT. IS COMPLAINING THAT SHE WANTS TO TAKE TAMOXIFEN CITRATE 20MG TONIGHT, PT. WAS INFORMED THAT MEDICATION WAS HELD ON THE MEDICATION RECONCILIATION, MADE AWARE PT. INSISTED TO CALL THE DOCTOR AND IS CALLING HER FAMILY MEMBERS AND IS VERY UPSET. DR. ELLIS SAID OK TO CONTINUE TO MEDICATION, START FIRST DOSE TONIGHT. ORDER NOTED AND CARRIED OUT.
[2016-11-30] MEDS: TAMOXIFEN CITRATE 10 MG TABLET PO SCH ×2 (00:30→08:47)
--- NOTE | 2016-11-30 02:00 | NUR ---
RN ROUNDS PT. RESTING QUIETLY, VITAL SIGNS STABLE, NO DISTRESS NOTED, DENIES PAIN, CALL LIGHT WITHIN REACH.
--- NOTE | 2016-11-30 04:00 | NUR ---
RN ROUNDS PT. RESTING QUIETLY, VITAL SIGNS STABLE, NO DISTRESS NOTED, DENIES PAIN, CALL LIGHT WITHIN REACH.
[2016-11-30] MEDS ORDERED: COMMUNICATION ORDER XX ONE (06:00)
--- NOTE | 2016-11-30 06:00 | NUR ---
S/W DR. STEPHENSON SPOKE WITH DR. PARKS, MADE AWARE BLOOD SUGAR THIS MORNING IS 442, PT. STATED HER INSULIN PUMP IS NOT WORKING, RECEIVED ORDER TO GIVE HUMALOG 20 UNITS SUBQ NOW. STATED HE WILL ORDER A SLIDING SCALE LATER. ORDER NOTED AND TO BE CARRIED OUT.
[2016-11-30] MEDS: LEVOTHYROXINE SODIUM 0.112 MG TABLET PO SCH (06:29)
[2016-11-30] MEDS ORDERED: INSULIN ASPART 100 UNITS/ML, 10 ML VIAL SUBCUT ONE (06:30)
[2016-11-30 07:03] LABS: BASOPHILS % (AUTO) 0.3 % (0.0-2.0); EOSINOPHILS # (AUTO) 0.3 K/uL (0.0-0.4); HEMATOCRIT 38.3 % (36-48); HEMOGLOBIN 12.6 g/dL (12.0-16.0); LYMPHOCYTES # (AUTO) 2.6 K/uL (1.0-5.5); LYMPHOCYTES % (AUTO) 25.7 % (20.5-51.5); MEAN CORPUSCULAR HEMOGLOBIN 28 pg (27-31); MEAN CORPUSCULAR HGB CONC 33 % (32-36); MEAN CORPUSCULAR VOLUME 86 fL (79.0-98.0); MONOCYTES # (AUTO) 0.7 K/uL (0.0-1.0); MONOCYTES % (AUTO) 6.4 % (1.7-9.3); NEUTROPHILS # (AUTO) 6.7 K/uL (1.8-7.7); NEUTROPHILS % (AUTO) 64.6 % (40.0-70.0); PLATELET COUNT (AUTO) 194 K/uL (130-430); RED BLOOD CELL COUNT(AUTO) 4.45 MIL/uL (4.2-6.2); RED CELL DISTRIBUTION WIDTH 17.6 % (9.0-15.0); WHITE BLOOD COUNT (AUTO) 10.3 K/uL (4.8-10.8)
[2016-11-30 07:25] LABS: ALANINE AMINOTRANSFERASE 19 U/L (12-78); ALBUMIN 3.5 g/dL (3.4-4.8); ANION GAP 10 (5-15); ASPARTATE AMINOTRANSFERASE 21 U/L (10-37); CALCIUM 8.5 mg/dL (8.4-11.0); CHLORIDE 100 mmol/L (98-107); CREATININE 3.34 mg/dL (0.55-1.30); POTASSIUM 4.8 mmol/L (3.5-5.1); SODIUM SERUM 134 mmol/L (136-145); THYROID STIMULATING HORMONE 19.04 uIu/mL (0.36-3.74); TOTAL BILIRUBIN 0.5 mg/dL (0.0-1.0); TOTAL PROTEIN, SERUM 6.8 g/dL (6.4-8.3)
--- NOTE | 2016-11-30 07:30 | NUR ---
AM ROUNDS RECEIVED PT UP IN BED. A&O X4. BREATHING IS EVEN AND UNLABORED ON RA. NO ACUTE DISTRESS. FULL ASSESSMENT COMPLETED. VSS. POC DISCUSSED. PT VERBALIZED UNDERSTANDING. RD OF CALL LIGHT NOTED. ENCOURAGED PT TO CALL ME WITH ANY NEEDS.
[2016-11-30 07:51] LABS: GLUCOSE 459 mg/dL (70-99); UREA NITROGEN, BLOOD 48 mg/dL (8-21)
[2016-11-30] MEDS: FOLIC ACID 1 MG TABLET PO SCH (08:42)
[2016-11-30] MEDS: FUROSEMIDE 40 MG TABLET PO SCH (08:42)
[2016-11-30] MEDS: hydrALAZINE HCL 25 MG TABLET PO SCH ×2 (08:42→15:00)
[2016-11-30] MEDS: PANTOPRAZOLE SODIUM 40 MG TAB PO SCH (08:43)
[2016-11-30] MEDS: METOPROLOL SUCCINATE 50 MG TAB.SR.24H (TOPROL XL) PO SCH (08:43)
[2016-11-30] MEDS: NIFEDIPINE 90 MG TABLET.SA (PROCARDIA XL 90 MG) PO SCH (08:43)
--- NOTE | 2016-11-30 10:00 | NUR ---
Rounds Patient resting , denies any pain ,fall precaution/safety initiated , needs attended , call light within reach.
[2016-11-30] MEDS ORDERED: TAMOXIFEN CITRATE 10 MG TABLET PO ONE (10:30)
--- NOTE | 2016-11-30 11:30 | NUR ---
Mobility Out of bed with minimal assist mild dizziness, blood pressure within normal limits, provided bedside commode, tolerates well fall /safety precaution initiated, call light within reach patient able to understand. Addendum: 11/30/16 at 1153 by Marilee Bautista RN blood sugar 295 mg/dl , insulin pump working now with patient refused for any additional insulin.
--- NOTE | 2016-11-30 11:40 | NUR ---
HEMODIALYSIS started , vitals sign monitored, lunch served, will continue to monitor.
--- NOTE | 2016-11-30 12:02 | NUR ---
Spoke to DR. Rueda informed regarding blood sugar 295 mg/dl , ok to use insulin pump of the patient.
[2016-11-30] MEDS ORDERED: LEVO150T PO (14:33)
[2016-11-30] MEDS ORDERED: LEVO500T20 PO (14:34)
--- NOTE | 2016-11-30 14:40 | NUR ---
Hemodialysis completed 2 liters out , vitals sign stable, alert/oriented x4 denies any discomfort.
--- NOTE | 2016-11-30 15:55 | NUR ---
D/C Patient Patient given medication reconciliation form and D/C instructions. Exit Care provided. Patient AND DAUGHTER GRANT verbalized understanding. MD discussed with patient the results and treatment provided. Ambulatory with ASSIST steady gait for discharge to home. Patient in stable condition, ID band removed. PERMACATHETER RIGHT CHEST WITH DRESSING SECURED. Rx of given. Patient educated on SAFETY . All belongings sent with patient.
--- NOTE | 2016-11-30 16:10 | NUR ---
Patient was discharge accompanied by the daughter GRANT , patient has a caregiver who comes in the morning and afternoon.
[2016-11-30] MEDS ORDERED: TAMOXIFEN CITRATE 10 MG TABLET PO SCH (18:00)
--- NOTE | 2016-12-05 14:14 | NUR ---
Discharge Follow Up Phone Calls: [employer] Packaging Machine Operator called and left a voice mail for pt's dtr, Jenifer ([phone]), on 12/01/16. SIGNAL OPERATOR LINGUIST called and left a voice mail for pt's dtr today. SIGNAL OPERATOR LINGUIST called and spoke with pt's caregiver, Lilian ([phone]), today. Pt's caregiver states that pt is doing well; pt's prescriptions have been filled; there are no questions regarding discharge or medication instructions; pt attended follow up appointment with the Masonry Inspector on 12/02/16; pt checks her blood sugar as directed by PCP. Pt's caregiver did not express any other needs or concerns and denied the need for additional follow up at this time. No further follow up phone calls required at this time.
== END 2016-11-30 16:10 | disposition home or self-care (01) | DRG 204 ==
LOC: SED 08:58 → STU 10:56 → SMU 11-29 14:39 → STU 11-29 20:02
PROVIDERS: ADMIT Internal Medicine Hospice and Palliative Medicine; ATTEND Internal Medicine Hospice and Palliative Medicine
DX: R55 Syncope and collapse (principal); E10.22 Type 1 diabetes mellitus with diabetic chronic kidney disease; N18.6 End stage renal disease; I12.0 Hypertensive chronic kidney disease with stage 5 chronic kidney disease or end stage renal disease; N39.0 Urinary tract infection, site not specified; Z96.41 Presence of insulin pump (external) (internal); E66.9 Obesity, unspecified; E03.9 Hypothyroidism, unspecified; B96.20 Unspecified Escherichia coli [E. coli] as the cause of diseases classified elsewhere; Z79.4 Long term (current) use of insulin; E78.2 Mixed hyperlipidemia; Z85.3 Personal history of malignant neoplasm of breast; Z99.2 Dependence on renal dialysis; Z92.21 Personal history of antineoplastic chemotherapy; Z92.3 Personal history of irradiation; Z88.8 Allergy status to other drugs, medicaments and biological substances; Z79.899 Other long term (current) drug therapy
CPT/HCPCS: 36415; 70450-TC; 71010; 73030; 80053; 81000-TC; 82962; 83605; 84443-TC; 84484; 85025; 85610-TC; 85730-TC; 87040-TC; 87081; 87086; 87186-TC; 90935; 90937; 93005; 93306; 96372; 99285; J0696; J1644; J2001; J7030; Q0162

== ENCOUNTER 2017-02-13 11:10 | Emergency (ER) | payer OTHER ==
[~2017-02-13] VITALS: Ht 165.1 cm; Wt 86.2 kg
[~2017-02-13 11:10] MED LIST changes: -ACYC400T PO; -CALC0.258 PO; -EPOE1VIA13 SUBCUT; -ERGO500043 PO; -FERR-57 PO; -INSU100V26 SUBCUT; -INSU100V9 SUBCUT; -LEVO112T5 PO; +LEVO150T PO; +LEVO500T20 PO; +METO-308; +NIFE20CA PO; -SODI325T PO
[2017-02-13 11:47] VITALS: BP_SYST 121
[2017-02-13 12:27] LABS: BASOPHILS % (AUTO) 0.3 % (0.0-2.0); EOSINOPHILS # (AUTO) 0.1 K/uL (0.0-0.4); EOSINOPHILS % (AUTO) 0.6 % (0.0-4.0); HEMATOCRIT 34.1 % (36-48); HEMOGLOBIN 11.2 g/dL (12.0-16.0); LYMPHOCYTES # (AUTO) 1.8 K/uL (1.0-5.5); LYMPHOCYTES % (AUTO) 15.8 % (20.5-51.5); MEAN CORPUSCULAR HEMOGLOBIN 29 pg (27-31); MEAN CORPUSCULAR HGB CONC 33 % (32-36); MEAN CORPUSCULAR VOLUME 88 fL (79.0-98.0); MONOCYTES # (AUTO) 1.1 K/uL (0.0-1.0); MONOCYTES % (AUTO) 9.1 % (1.7-9.3); NEUTROPHILS # (AUTO) 8.6 K/uL (1.8-7.7); NEUTROPHILS % (AUTO) 74.2 % (40.0-70.0); PLATELET COUNT (AUTO) 146 K/uL (130-430); RED BLOOD CELL COUNT(AUTO) 3.89 MIL/uL (4.2-6.2); RED CELL DISTRIBUTION WIDTH 13.5 % (9.0-15.0); WHITE BLOOD COUNT (AUTO) 11.6 K/uL (4.8-10.8)
[2017-02-13 12:28] LABS: ANION GAP 6 (5-15); CALCIUM 8.6 mg/dL (8.4-11.0); CHLORIDE 101 mmol/L (98-107); CREATININE 3.42 mg/dL (0.55-1.30); GLUCOSE 150 mg/dL (70-99); POTASSIUM 3.8 mmol/L (3.5-5.1); SODIUM SERUM 136 mmol/L (136-145); UREA NITROGEN, BLOOD 42 mg/dL (8-21)
[2017-02-13 12:30] LABS: INR 0.9 (0.8-1.2); PROTHROMBIN TIME 10.3 SECS (9.5-12.5)
[2017-02-13 12:32] LABS: ALANINE AMINOTRANSFERASE 27 U/L (12-78); ALBUMIN 3.3 g/dL (3.4-4.8); ASPARTATE AMINOTRANSFERASE 30 U/L (10-37); LIPASE 80 U/L (73-393); TOTAL BILIRUBIN 0.3 mg/dL (0.0-1.0); TOTAL PROTEIN, SERUM 7.1 g/dL (6.4-8.3)
[2017-02-13 12:40] LABS: BILIRUBIN,URINE NEGATIVE (NEGATIVE); BLOOD, URINE 1+ (NEGATIVE); CLARITY/URINE CLEAR (CLEAR); COLOR,URINE YELLOW (YELLOW); GLUCOSE,URINE NEGATIVE (NEGATIVE); KETONES,URINE NEGATIVE (NEGATIVE); LEUKOCYTE ESTERASE ,URINE 1+ (NEGATIVE); NITRITE, URINE NEGATIVE (NEGATIVE); PH,URINE 7.5 (5.0-8.0); PROTEIN URINE 1+ (NEGATIVE); UROBILINOGEN,URINE 0.2 (0.2-1.0)
[2017-02-13 12:51] LABS: BACTERIA,URINE MODERATE /HPF (None Seen); WBC,URINE 20-50 /HPF (0-3)
[2017-02-13] MEDS ORDERED: cefTRIAXone 1 GM IVPB PREMIX 50 ML IV ONE (13:00)
[2017-02-13 18:05] VITALS: BP_SYST 121
== END 2017-02-13 15:05 | disposition home or self-care (01) ==
LOC: SED 11:10
DX: N39.0 Urinary tract infection, site not specified (principal); I12.9 Hypertensive chronic kidney disease with stage 1 through stage 4 chronic kidney disease, or unspecified chronic kidney disease; E11.22 Type 2 diabetes mellitus with diabetic chronic kidney disease; N18.9 Chronic kidney disease, unspecified; Z99.2 Dependence on renal dialysis
CPT/HCPCS: 36415; 70450; 71010; 74176; 80053; 81000; 83690; 84484; 85025; 85610; 85730; 87086; 93005; 96374; 99285; J0696; 87186-TC